=== PATIENT | female | born 1930 | race African-American/Black ===

== ENCOUNTER 2019-10-04 11:55 | Day surgery (SDC) ==
--- NOTE | 2019-10-04 12:55 | ED EKG INTERP ---
This chart was entered by Bhavani Lovelace Scribe, acting as scribe for José Miguel Shepherd MD. EKG Interpretation - EKG Time of EKG reading by physician:: 12:40 EKG Read and Signed by:: José Miguel Shepherd EKG Interpretation (*Must complete 3 of following elements*): Abnormal Rate: 59 Rhythm: sinus bradycardia with 1st degree AV block [place]: left (deviation) QRS: LBB TN Interval: normal ST Wave: normal Attestation - Physician/ WILMER Attestation Patient care was provided by Advanced Practice Provider:: Yes Advanced Practice Provider:: Isadora Betts Advanced Practice Provider documentation review:: The Mid-level provider documentation, treatment plan and medical decision making was reviewed by the physician who agrees with all treatment and medical decision making by the MLP. The physician spent face to face time with patient:: No Advanced Practice Provider documentation review:: Supervising physician onsite and consulted in the evaluation and care of this patient. The physician did not have a face to face encounter with the patient. This chart was documented by the indicated scribe, (Bhavani Lovelace Scribe) and accurately reflects the services I performed and decisions made by me, José Miguel Shepherd MD, as attested by the provider's signature.
--- NOTE | 2019-10-04 13:13 | PROVIDER DOCUMENTATION ---
HPI-General Adult - General Chief Complaint: B/P Problems Stated Complaint: BP LOW Time Seen by Provider: 10/04/19 12:49 Source: patient, family Allergies/Adverse Reactions: Patient Allergies Allergy/AdvReac Type Severity Reaction Status Date / Time sulfamethoxazole Allergy Unknown Verified 01/20/18 12:48 [From Bactrim] trimethoprim [From Bactrim] Allergy Unknown Verified 01/20/18 12:48 Home Medications: Home Medication List Medication Instructions Recorded Confirmed Last Taken Type Allopurinol [Zyloprim] 300 mg PO DAILY 06/18/13 01/19/18 01/18/18 History Pravastatin Sodium 40 mg PO QHS 06/18/13 01/19/18 01/18/18 History Warfarin [Coumadin] 3 mg PO HS 04/25/14 01/19/18 01/18/18 History Iron Carbonyl/Ascorbic Acid 1 each PO DAILY #0 04/27/14 01/19/18 01/18/18 Rx [Icar-C] B-Complex with Vitamin C [Super B 1 each PO DAILY 01/19/18 01/19/18 01/18/18 History Complex-Vitamin C] Ergocalciferol (Vitamin D2) 50,000 unit PO Q7D 01/19/18 01/19/18 01/15/18 History [Drisdol] Omeprazole 40 mg PO DAILY 01/19/18 01/19/18 01/18/18 History Hydralazine [Apresoline] 25 mg PO TID@0900,1500,2100 #90 tab 01/25/18 Unknown R x Isosorbide Dinitrate [Isordil] 20 mg PO TID@0900,1500,2100 11 01/25/18 Unknown Rx Days #90 tab - History of Present Illness -Gen Adult Nature of Presenting Problems: Pt. is 88 yof that presents with c/o having physical therapy today and they told her her BP was to low. Her family brings her in to be checked out but the patient states she feels fine. Location of Pain/Injury: reports: none. denies: head, face, mouth, neck, chest, upper extremity, hand(s), abdomen, back, pelvis, genitalia, lower extremity, feet, upper body, lower body, generalized, other Pain Radiation: reports: no radiation. denies: arm(s), back, buttocks, chest, epigastric, feet, groin, jaw, flank (L), legs (lower), LLQ, LUQ, neck, periumbilical, flank (R), RLQ, RUQ, shoulder(s), scapula, scrotal, sternal notch, suprapubic, legs (upper), urethral, vaginal, other Quality of Pain: reports: none. denies: aching, pressure, tightness Severity: denies: mild, moderate, severe Onset/Duration: reports: unsure Timing: reports: gone now. denies: improving, intermittent, getting worse Context/Activities at Onset: reports: none. denies: light activity, moderate activity, vigorous activity, recent emotional stress, recent physical stress, recent trauma history, possible bad food, cold exposure, eating, out of country travel, rest, sleep, sexual activity, other Modifying Factors: improves with: nothing Associated Symptoms: reports: denies symptoms. denies: anxiety, arm pain, back/neck pain, chest pain, constipation, cough, diaphoresis, diarrhea, dizziness, EENT symptoms, fatigue, fever/chills, genitourinary problems, headaches, heartburn, joint pain, loss of appetite, malaise, muscle aches, sinus congestion/drainage, nausea, rash, seizure, shortness of breath, sensory/motor loss, pain with inspiration, swelling/mass in abdomen, syncope, vomiting, weakness, trouble walking, other Similar Symptoms Previously?: No Recently seen or treated by another doctor?: No Review of Systems - Adult - REVIEW OF SYSTEMS - ADULT Constitutional: reports: no symptoms reported Eyes: reports: no symptoms reported Ears, Nose, Mouth & Throat: reports: no symptoms reported Cardiovascular: reports: no symptoms reported Respiratory: reports: no symptoms reported Gastrointestinal: reports: no symptoms reported Genitourinary: reports: no symptoms reported Musculoskeletal: reports: no symptoms reported Integumentary: reports: no symptoms reported Neurological: reports: no symptoms reported Psychiatric: reports: no symptoms reported Past History - Adult - PAST MEDICAL HISTORY-ADULT Review of Records: reports: Old Records Reviewed, Nursing Assessment Review, Medications Reviewed, Social history reviewed & non-contributory. Major Childhood Illnesses: reports: denies history Cardiovascular: reports: A-Fib, CHF, HTN, hyperlipidemia Respiratory: reports: denies history Gastrointestinal: reports: GERD Obstetrical/Gynecological: reports: denies history Genitourinary: reports: denies history Musculoskeletal: reports: arthritis (gouty) Neurological: reports: denies history Endocrine/Immune: reports: denies history Other Conditions: reports: denies history - PRIOR SURGERIES/PROCEDURES Surgical/Procedure History: reports: hysterectomy, orthopedic (extremity), other - PRIOR HOSPITALIZATIONS Prior Hospitalizations: reports: for similar symptoms - IMMUNIZATION STATUS Childhood Immunizations: See Nurse Assessment Flu Vaccine: See Nurse Assessment - FAMILY HISTORY Family History: reviewed, not pertinent - SOCIAL HISTORY Smoking: denies Physical Exam-General - PHYSICAL EXAM-ADULT Initial Vital Signs Reviewed: Yes - CONSTITUTIONAL General Appearance: alert, no apparent distress. negative: anxious, slow to respond, obtunded, combative - EYES Eyes: PERRL/EOMI, pink conjunctivae - HEAD, EARS, NOSE, MOUTH & THROAT HENMT: normocephalic/atraumatic, moist mucous membranes - NECK Neck: non-tender, full range of motion, supple, normal inspection - RESPIRATORY Respiratory: lungs clear, normal breath sounds - CARDIOVASCULAR Cardiovascular: normal peripheral pulses, regular rate, rhythm - GASTROINTESTINAL (ABDOMEN) Abdominal Exam: normal bowel sounds, non tender, soft - LYMPHATIC Lymphatic: no adenopathy - MUSCULOSKELETAL Back Exam: normal inspection, no CVA tenderness, no vertebral tenderness Extremity: normal range of motion, non-tender, normal gait Peripheral Pulses: radial (R): 2+, radial (L): 2+ - SKIN Integumentary: normal color, normal turgor, warm/dry - NEUROLOGIC Neurologic: grossly normal, no motor/sensory deficits - PSYCHIATRIC Psych/Mental Status: normal mood/affect, normal thought content, normal thought process, oriented x 3. negative: anxious, paranoid, tearful Progress - PLAN OF CARE/RESULTS Progress/Plan/Lab Results: Vital Signs - 8 hr 10/04/19 12:21 Temperature 97.6 F Pulse Rate 61 Respiratory Rate 16 Blood Pressure 103/62 O2 Sat by Pulse Oximetry 96 Orders Category Date Time Status CBC WITH ELECTRONIC DIFF [HEME] Stat Lab 10/04/19 13:11 Uncollected COMPREHENSIVE METABOLIC PANEL [CHEM] Stat Lab 10/04/19 13:11 Uncollected URINALYSIS W/POSS RFLX CULT [URINALYSIS] Stat Lab 10/04/19 13:11 Uncollected Laboratory Tests 10/04/19 10/04/1910/04/19 13:23 13:23 13:39 WBC 5.35 RBC 3.20 L Hgb 11.0 L Hct 34.9 L MCV 109.1 H MCH 34.4 H MCHC 31.5 L RDW Std Deviation 13.3 Plt Count 120 L MPV 11.9 H Immature Gran % (Auto) 0.0 Neut % (Auto) 55.2 Lymph % (Auto) 26.0 [place] % (Auto) 10.7 H Eos % (Auto) 7.7 Baso % (Auto) 0.4 Immature Gran # (Auto) 0.00 Neut # (Auto) 2.96 Lymph # (Auto) 1.39 [place] # (Auto) 0.57 Eos # (Auto) 0.41 Baso # (Auto) 0.02 Sodium 139 Potassium 4.3 Chloride 100 Carbon Dioxide 25 Anion Gap 14 BUN 70 H Creatinine 3.2 H Estimated GFR/1.73 m2 17 BUN/Creatinine Ratio 22 Glucose 99 Calculated Osmolality 298 Calcium 10.2 Total Bilirubin 0.31 AST 19 ALT 8 L Alkaline Phosphatase 63 Total Protein 6.9 Albumin 3.9 Globulin 3.0 Albumin/Globulin Ratio 1.3 Urine Source CLEAN CATCH Urine Color YELLOW Urine Turbidity CLEAR Urine pH 6.0 Ur Specific Waterflow 1.010 Urine Protein NEGATIVE Ur Glucose (Stick) NEGATIVE Ur Ketones (Stick) NEGATIVE Urine Blood NEGATIVE Urine Nitrite NEGATIVE Urine Bilirubin NEGATIVE Urobilinogen Dipstick NORMAL Urine Leukocytes TRACE A Urine WBC (Auto) <10 Urine RBC (Auto) <10 U Epithel Cells (Auto) <10 Urine Bacteria (Auto) NEGATIVE Discussed patient with Dr. Shepherd and he recommends admission Discussed results and plan of care with patient. Patient agrees with plan and verbalizes understanding. Result Diagrams: 10/04/19 13:23 10/04/19 13:23 - CONSULTS/PCP/HOSPITALIST Notification #1 *Consult/PCP/Hospitalist*: Mojgan Melvin Time Discussed: 14:56 Reason/Comments: Admission Consult Disposition: Will see in ED, Admit Departure - Departure Date of Disposition Decision: 10/04/19 Time of Disposition Decision: 14:53 DIAGNOSIS: Dehydration Acute renal failure Qualifiers: Acute renal failure type: unspecified Qualified Code(s): N17.9 - Acute kidney failure, unspecified Disposition: ADMITTED INPATIENT 09 Certified Medical Emergency: Emergent Condition: Stable Referrals and Follow-Ups: Yolanda Kim MD [Primary Care Provider] - - Critical Care Note This patient required my direct & personal management of CC.: No Attestation - Physician/ WILMER Attestation Patient care was provided by Advanced Practice Provider:: Yes Advanced Practice Provider:: Isadora Betts Advanced Practice Provider documentation review:: The Mid-level provider documentation, treatment plan and medical decision making was reviewed by the physician who agrees with all treatment and medical decision making by the MLP. The physician spent face to face time with patient:: No Advanced Practice Provider documentation review:: Supervising physician onsite and consulted in the evaluation and care of this patient. The physician did not have a face to face encounter with the patient.
[2019-10-04 13:43] LABS: BASO# 0.02 X1000 (0.0-0.2); BASO% 0.4 % (0.0-0.8); EOS# 0.41 X1000 (0.0-0.7); EOS% 7.7 % (0.0-10.0); HEMATOCRIT 34.9 % (37.0-47.0); LYMPH# 1.39 X1000 (1.2-3.4); MCH 34.4 PG (27-31); MCHC 31.5 g/dL (33-37); MCV 109.1 FL (81-99); MONO# 0.57 X1000 (0.11-0.59); MONO% 10.7 % (1.7-9.3); MPV 11.9 FL (7.4-10.4); NEUT# 2.96 X1000 (1.4-6.5); NEUT% 55.2 % (42.2-75.2); PLT 120 X1000 (130-400); RDW 13.3 % (11.5-14.5); WBC 5.35 X1000 (4.8-10.8)
[2019-10-04 13:49] LABS: URINE SOURCE CLEAN CATCH
[2019-10-04 13:55] LABS: BILIRUBIN URINE NEGATIVE (NEGATIVE); BLOOD URINE NEGATIVE (NEGATIVE); COLOR YELLOW; GLUCOSE URINE NEGATIVE (NEGATIVE); KETONE URINE NEGATIVE (NEGATIVE); LEUKOCYTES URINE TRACE (NEGATIVE); NITRITE URINE NEGATIVE (NEGATIVE); PROTEIN URINE NEGATIVE (NEGATIVE); TURBIDITY URINE CLEAR (CLEAR); UR EPITHELIAL CELLS <10 /HPF (<10); URINE BACTERIA NEGATIVE /HPF; URINE RBC <10 /HPF (<10); URINE WBC <10 /HPF (<10); UROBILINOGEN URINE NORMAL (NORMAL)
--- NOTE | 2019-10-04 14:17 | EKG Report ---
Test Performed on : 10/04/2019 12:40:57 PM Test Reason : BP LOW Blood Pressure : / mmHG Vent. Rate : 059 BPM Atrial Rate : 059 BPM P-R Int : 214 ms QRS Dur : 160 ms QT Int : 486 ms P-R-T Axes : 035 -56 139 degrees QTc Int : 481 ms Sinus bradycardia. with 1st degree AV block. Left axis deviation Left bundle branch block Abnormal ECG When compared with ECG of 22-JAN-2018 06:40, [place] interval has increased Vent. rate has decreased BY 56 BPM QRS duration has increased T wave inversion more evident in Lateral leads Unconfirmed Result
[2019-10-04 14:32] LABS: ALB/GLOB RATIO 1.3; ALBUMIN 3.9 g/dL (3.5-5.0); CALCIUM 10.2 mg/dL (8.8-10.2); CREATININE 3.2 mg/dL (0.5-0.9); POTASSIUM 4.3 mmol/L (3.5-5.1); TOTAL BILIRUBIN 0.31 mg/dL (0.20-1.00); TOTAL PROTEIN 6.9 g/dL (6.3-8.3)
[2019-10-04] MEDS ORDERED: NS 500 ML IV ONE (14:50)
[2019-10-04 15:54] LABS: FREE T4 1.01 ng/dL (0.93-1.70); TSH 3.3 uIUmL (0.27-4.20)
--- NOTE | 2019-10-04 16:19 | HISTORY AND PHYSICAL ---
HISTORY OF PRESENT ILLNESS: Ms. Urias presented on 10/04/2019. She was last here it appears in January 2018. Her doctor is Dr. Yolanda Kim, customer account representative is Dr. Paul, audio engineer is Dr. Graves. This is an 88-year-old black female with history of congestive heart failure. Last ejection fraction 55 to 60 percent, chronic kidney disease exact stage I think stage 5D, severe hypertension and paroxysmal atrial fibrillation. She came to the emergency room after going to rehab. Blood pressure was low and she felt a little bit lightheaded and systolic pressures in the 80s. She usually has chronic venous insufficiency and a little pedal edema and they noticed that her ankles were kind of low and she says she had not been eating or drinking much. She denies any fever or chills. No pleuritic pain. No squeezing chest pain. No change in her bowels or diarrhea, hematochezia, gross hematuria or dysuria. PAST MEDICAL HISTORY: 1. Congestive heart failure. Echocardiogram in 06/17/2016 showed ejection fraction 50-55%. Mild to moderate TR. Pulmonary artery systolic pressure is 46 to 50. 2. Paroxysmal atrial fibrillation. 3. History of pulmonary emboli on Coumadin. 4. Gout. 5. Iron deficiency anemia. 6. Hyperlipidemia. 7. Glaucoma. 8. Chronic kidney disease. He sees Dr. Graves. PAST SURGERY HISTORY: Status post hysterectomy, status post bilateral knee arthroplasty. SOCIAL HISTORY: Denies alcohol or tobacco or drug use. She lives with her family. Family very attentive. FAMILY HISTORY: Noncontributory. They deny any history of kidney or heart or lung problems. ALLERGIES: No known drug allergies. REVIEW OF SYSTEMS: General: He does not report any weight gain or loss. No fever or chills. HEENT: Unremarkable. No change in visual or hearing acuity. Respiratory: No increased work of breathing or dyspnea. Cardiovascular: No chest pain or tachy palpitation. Gastrointestinal: No gross hematuria, dysuria. No diarrhea Endocrinologic/hemologic: No significant history. Musculoskeletal: Neurologic just general weakness and feels lightheaded. PHYSICAL EXAMINATION: VITAL SIGNS: Exam in the emergency room temperature 97.6 degrees, pulse 60, respirations 16, blood pressure 103/62, weight 165 pounds. Height 5 feet 3 inches. HEENT: Pupils are equal and round. Conjunctivae pink. Sclerae clear. CVP is less than 6 cm, no distended neck veins. LUNGS: Clear anterolateral and posterior. CARDIOVASCULAR: Regular rhythm and rate without murmur or S3. ABDOMEN: Soft, nondistended, nontender. Positive bowel sounds in all quadrants. No pedal edema. SKIN: No skin rashes. Oral and nasal mucosa without any lesions. Neck is supple without adenopathy or thyromegaly. LABORATORY DATA: White count 5350, hematocrit is 34, platelet count is 120,000. Sodium 139, potassium 4.3, chloride 100, BUN 70, creatinine 3.2. She has chronic kidney disease and looks like her she is stage 3B. Urine clear. ASSESSMENT AND PLAN: 1. Appears to be little dry and we are going to give her a little bit of fluid. We will put her on a renal diet. 2. Paroxysmal atrial fibrillation. She is on Coumadin. We need to check her prothrombin time. We will check that. 3. History of chronic kidney disease, looks like she has stage 3B. 4. History of gout. Continue allopurinol. 5. [place] [address] units of vitamin D daily, so we will hold her Apresoline at this point and I guess we will continue her Isordil. We will check to make sure her prothrombin time. We will check a T4, TSH, B12 and folate. Check an a.m. cortisol level. cc: Alpesh Melvin MD
[2019-10-04 16:36] LABS: INR 1.2; PROTIME 15.4 Seconds (11.0-16.0)
[2019-10-04] MEDS ORDERED: ZOFRAN IV PRN (16:59)
[2019-10-04] MEDS ORDERED: TYLENOL PO PRN (16:59)
[2019-10-04] MEDS: NS 1,000 ML IV SCH (18:13)
[2019-10-05] MEDS: NS 1,000 ML IV SCH ×2 (06:04→06:09)
[2019-10-05 06:59] LABS: INR 1.11; PROTIME 14.5 Seconds (11.0-16.0)
[2019-10-05 07:02] LABS: BASO# 0.01 X1000 (0.0-0.2); BASO% 0.2 % (0.0-0.8); EOS# 0.41 X1000 (0.0-0.7); EOS% 7.9 % (0.0-10.0); HEMATOCRIT 33.3 % (37.0-47.0); HEMOGLOBIN 10.4 g/dL (12.0-16.0); LYMPH# 1.42 X1000 (1.2-3.4); LYMPH% 27.4 % (20.5-51.1); MCH 33.9 PG (27-31); MCHC 31.2 g/dL (33-37); MCV 108.5 FL (81-99); MONO# 0.66 X1000 (0.11-0.59); MONO% 12.7 % (1.7-9.3); MPV 12.1 FL (7.4-10.4); NEUT# 2.69 X1000 (1.4-6.5); NEUT% 51.8 % (42.2-75.2); PLT 113 X1000 (130-400); RBC 3.07 XMIL (4.2-5.4); RDW 13.1 % (11.5-14.5); WBC 5.19 X1000 (4.8-10.8)
[2019-10-05 07:32] LABS: CALCIUM 9.4 mg/dL (8.8-10.2); CREATININE 2.5 mg/dL (0.5-0.9); POTASSIUM 3.9 mmol/L (3.5-5.1)
--- NOTE | 2019-10-05 09:35 | PROGRESS NOTE ---
DATE: 10/05/2019 SUBJECTIVE: She had a good night. She feels better. OBJECTIVE: Blood pressure, last two numbers were 134/64 and 100/63. Temperature 98.1, pulse 61, respirations 14. Lungs are clear in all lung alberto. Cardiovascular: Regular rate and rhythm without murmur or S3. Abdomen is soft. Skin is warm and dry. Urine output was 800 mL. DIAGNOSTIC DATA: Review of lab work again unremarkable. Creatinine came down from 3.2 to 2.5. ASSESSMENT AND PLAN: 1. It looks like she just had an intravascular volume depletion and doing much better. 2. Paroxysmal atrial fibrillation. She is on Coumadin, and her ProTime is a little low, but we will continue her present Coumadin dose. 3. I think she can probably go home today. We will see how she does with breakfast and lunch and hopefully can send her home. cc: Alpesh Melvin MD
[2019-10-05 12:08] VITALS: BP 98/53
--- NOTE | 2019-10-05 15:16 | DISCHARGE SUMMARY ---
ADMISSION DATE: 10/04/2019 DISCHARGE DATE: 10/05/2019 HOSPITAL COURSE: She was last here it appears in January 2018. Doctor is Dr. Yolanda Kim. Geriatric Psychiatrist is Dr. Paul. Fiberglass Model Maker, Dr. Graves. An 88-year-old with history of congestive heart failure. Last ejection fraction was about 55 to 60 percent Chronic kidney disease. I think stage IIIB, severe hypertension, paroxysmal atrial fib. She came to the emergency room after she was at rehab and exercised, got lightheaded and systolic pressure went down to the 80s. She appeared to have intravascular volume depletion and she appears to have chronic venous insufficiency. They noticed that her pedal edema had gone down as well, so put her in and gave her some IV fluids. Blood pressures seemed to come up. They ranged from 98/53 to 134/64. Her lungs were clear, breathing comfortably. No dizziness. Looking back at her medications, she was taking allopurinol 300 mg a day, which I will continue, Eliquis 2.5 mg b.i.d. I will continue that. Aricept 10 mg a day. Continue vitamin D2 50,000 units every 7 days. I am going to hold her Lasix. Continue her Icar-C 1 at bedtime and probiotic once a day, but I am going to hold her Toprol-XL and will continue pravastatin and have her follow up with her primary care doctor. cc: Alpesh Melvin MD
== END 2019-10-05 15:37 | disposition home or self-care (01) ==
LOC: ED 11:55 → OPS 16:31 → INTOOBSV 16:31 → EDIPHOLD 16:31 → 4N 16:46 → OPS 10-05 15:37
PROVIDERS: ATTEND Emergency Medicine